=== PATIENT | female | born 1985 | race Caucasian/White ===

== ENCOUNTER 2017-07-10 09:38 | Inpatient (IN) | payer OTHER ==
[~2017-07-10] VITALS: Ht 165.1 cm; Wt 59.0 kg
[2017-07-10] MEDS ORDERED: LORAZEPAM 2 MG/1 ML VIAL IM PRN (11:30)
[2017-07-10] MEDS ORDERED: CLONIDINE HCL 0.1 MG TABLET PO PRN (11:30)
[2017-07-10] MEDS ORDERED: LOPERAMIDE HCL 2 MG CAPSULE PO PRN ×2 (11:30)
[2017-07-10] MEDS ORDERED: ACETAMINOPHEN 325 MG TABLET PO PRN (11:30)
[2017-07-10] MEDS ORDERED: NICOTINE 14 MG/24HR PATCH TD PRN (11:30)
[2017-07-10] MEDS ORDERED: NICOTINE POLACRILEX 4 MG GUM-PK OF TEN BC PRN (11:30)
[2017-07-10] MEDS ORDERED: BUPRENORPHINE HCL 2 MG TAB.SUBL SL PRN (11:30)
[2017-07-10] MEDS ORDERED: DIAZEPAM 10 MG TABLET PO PRN (11:30)
[2017-07-10] MEDS ORDERED: MAG HYDROX/AL HYDROX/SIMETH 30 ML LIQUID UDC PO PRN (11:30)
[2017-07-10] MEDS ORDERED: DIAZEPAM 5 MG TABLET PO PRN (11:30)
[2017-07-10 11:33] LABS: *URINE HCG, QUAL NEGATIVE (NEGATIVE)
[2017-07-10 11:46] LABS: *AMPHETAMINE, URINE NEGATIVE (NEGATIVE); *BARBITURATE, URINE NEGATIVE (NEGATIVE); *CANNABINOID, URINE NEGATIVE (NEGATIVE); *COCCAINE, URINE NEGATIVE (NEGATIVE); *OPIATE, URINE POSITIVE (NEGATIVE); *PHENCYCLIDINE SCREEN,URINE NEGATIVE (NEGATIVE)
--- NOTE | 2017-07-10 11:54 | NUR ---
Intake Assessment- Pt is being admitted to [facility] for supervised withdrawal from Dilaudid, Klonopin, and Trazodone. BP 108/76, HR 78, T-97.5, Reap 18, O2Sat 99%. Pt c/o chronic pain #9/10 r/t chronic complex regional pain syndrome and irritable bowel syndrome. Pt stable, no s/s withdrawal symptoms. Pt states she is always nauseated. c/o nausea now. Pt A&O X4. Pt reports she is allergic to a muscle relaxer but not able to remember the name. Pt able to sign consents. Is completing admission process with case coordinator.
[2017-07-10 12:00] VITALS: BP 108/76
[2017-07-10] MEDS ORDERED: IBUP-1953 PO (13:03)
[2017-07-10] MEDS ORDERED: ACET-2154 PO (13:04)
[2017-07-10] MEDS ORDERED: LIDO30AD10 TD (13:07)
[2017-07-10] MEDS ORDERED: ONDA8TAB6 PO (13:07)
[2017-07-10] MEDS ORDERED: [UNRECOGNIZED DRUG - REMARK] (13:08)
[2017-07-10] MEDS ORDERED: MECL-102 PO (13:09)
--- NOTE | 2017-07-10 13:30 | NUR ---
Admission Note- Pt is 32 y/o female who is admitted for medically supervised withdrawal from Dilaudid and Klonopin. Pt is under the influence of Dilaudid 8 mg and Klonopin 2 mg that she took at 0930 today. Pt has flat affect with a depressed mood. She is oriented X4, speech is slow and clear. Eye contact is good. The pt states that withdrawal from these substances has typically induced anxiety, agitation, panic attacks, generalized body pain, nausea and vomiting. Pt has history of withdrawal induced seizure in previous detox center in 2016. Pt states current substance use as follows: -Dilaudid 16 mg PO for 8 months. Last used today 8 mg at 0930 -Klonopin 4-5mg PO for 5 years. Last used 2 mg today at 0930 Pt states she is seeking treatment today because she wants to be off all these medications. This is her second detox. She was sober for 6 months, about 2 years ago in 2016. Her pain related to complex regional pain syndrome is her trigger. She is open to a 12-step program after detox. Vitals- 108/76, HR 78, 97.5, resp 18, 99% on room air. Pain #9/10 generalized, neck and right side of body. Resp even and unlabored, lung sounds clear, bowel sounds present, c/o constipation, no BM in 2 days. Hx of IBS. Skin intact. Pt does not drink milk, otherwise regular diet. ALLERGY MOBIC, causes rash. FULL CODE. Pt primary doctor Dr. Montiel in [place] treats her CRPS. Dr. Ama Montana in [facility] treats her IBS. Psychiatrist Dr. Dedrick Marshall. Pt has PMX of irritable bowel syndrome and complex regional pain syndrome. Pt daily medications also include Lidocaine 5% patch X3 for 12 hours. Zofran 8 mg Q8/hr, Baclofen 20 mg TID, Atarax 25-50 mg PRN and Miralax 1-2 capfuls PRN. Educated patient about plan of care including detox, group therapy, individual therapy and discharge planning. Encouraged pt to be open and honest and verbalized support for patient in her recovery.
[2017-07-10] MEDS: IBUPROFEN 600 MG TABLET PO PRN ×2 (14:12→20:39)
[2017-07-10] MEDS: ONDANSETRON ODT 4 MG TAB.RAPDIS SL PRN ×2 (14:12→20:39)
[2017-07-10] MEDS: BACLOFEN 20 MG TABLET PO PRN ×2 (14:12→20:39)
--- NOTE | 2017-07-10 14:14 | NUR ---
PRN VALIUM 5 MG for CIWA 8, pt c/o nauesa , sweats, tremors, anxiety. PRN ZOFRAN 4 MG PO for nausea. PRN MOTRIN 600 MG for generalized pain, neck pain and right sided pain. PRN BACLOFEN 20 MG for muscle spasms.
[2017-07-10] MEDS ORDERED: LIDOCAINE 5% TOP PRN (14:15)
--- NOTE | 2017-07-10 15:15 | NUR ---
Reassess PRN MEDICATIONS Valium- feel less anxious Zofran- still nauseated Motrin pain still #9/10 not effective Baclofen- muscle spasms improved.
[2017-07-10 15:59] LABS: ETHANOL < 3 MG/DL (0-0)
[2017-07-10 16:00] VITALS: BP 100/69
[2017-07-10 16:02] LABS: ALANINE AMINOTRANSFERASE 20 U/L (14-59); ALKALINE PHOSPHATASE 35 U/L (50-136); ASPARTATE AMINOTRANSFERASE 17 U/L (15-37); BASOPHILS % (AUTO) 0.6 % (0.0-2.0); BILIRUBIN,TOTAL 0.5 mg/dL (0.2-1.0); CARBON DIOXIDE 26 mmol/L (21-32); CHLORIDE 104 mmol/L (98-107); EOSINOPHILS # (AUTO) 0.2 K/uL (0.0-0.7); EOSINOPHILS % (AUTO) 2.9 % (0.0-7.0); GLUCOSE 103 mg/dL (74-106); HEMATOCRIT 37.9 % (31.2-41.9); HEMOGLOBIN 12.8 g/dL (10.9-14.3); LYMPHOCYTES # (AUTO) 2.6 K/uL (20.0-40.0); LYMPHOCYTES % (AUTO) 40.5 % (20.5-51.5); MAGNESIUM 2.1 mg/dL (1.8-2.4); MEAN CORPUSCULAR HEMOGLOBIN 29.3 uug (24.7-32.8); MEAN CORPUSCULAR HGB CONC 34 g/dL (32.3-35.6); MEAN CORPUSCULAR VOLUME 86.5 fL (75.5-95.3); MONOCYTES # (AUTO) 0.4 K/uL (2.0-10.0); MONOCYTES % (AUTO) 6.7 % (0.0-11.0); NEUTROPHILS # (AUTO) 3.2 K/uL (1.8-8.9); NEUTROPHILS % (AUTO) 49.3 % (38.5-71.5); PLATELET COUNT (AUTO) 142 K/uL (179-408); POTASSIUM 3.8 mmol/L (3.5-5.1); RED BLOOD CELL COUNT(AUTO) 4.38 MIL/uL (3.63-4.92); TOTAL PROTEIN, SERUM 7.1 g/dL (6.4-8.2); UREA NITROGEN, BLOOD 13 mg/dL (7-18); WHITE BLOOD COUNT (AUTO) 6.4 K/uL (3.8-11.8)
[2017-07-10] MEDS: ONDANSETRON 4 MG/2 ML VIAL IM PRN (16:32)
--- NOTE | 2017-07-10 16:37 | NUR ---
PRN ZOFRAN 4 MG IM for nausea and vomiting. 1 episode of emesis.
--- NOTE | 2017-07-10 17:15 | NUR ---
Reassess Zofran, emesis stopped. Pt states nausea improved. Pt ambulate to patio to smoke
--- NOTE | 2017-07-10 18:32 | NUR ---
End of shift- Pt is being admitted to [facility] for supervised withdrawal from Dilaudid, and Klonopin. Pt c/o chronic pain #9/10 r/t chronic complex regional pain syndrome and irritable bowel syndrome. Pt had one episode of emesis, and remains nauseated. PRN Baclofen, valium, Motrin, Zofran PO and IM given. Pt will start 5 day taper of Valium and Subutex tomorrow. Pt reports ALLERGY to MOBIC. FULL CODE. At 1600 last COWS 9 CIWA 11. Pt remained stable and vitals WNL. PO fluid intake 796 ml void X2, no BM. Safety measures in place. Will endorse to PM shift.
--- NOTE | 2017-07-10 19:15 | NUR ---
Start of Shift Note: Received patient from day shift nurse. Patient is a 58 y.o female admitted today 07/10/17 for medically supervised withdrawal from Opiate and Benzo dependence. Upon assessment, pt is observed to be disheveled & unkempt, noted with a flat affect, anxious/irritable mood, presented with chills, runny nose, dilated pupils, reports 9/10 body aches and moderately severe headache. Pt noted to be restless and with facial grimacing noted. Pt has sensitvity to light and loud noises and feelings of something crawling on skin. Patient is alert to name, place & situation. Pt has started on Valium taper and to be started on Subutex taper tomorrow. Pt tolerated Valium taper well. Last COWS 9 CI 11. Pt received PRN Valium 5mg, Motrin, Baclofen, Zofran SL & Zofran IM during the day. Encourage pt to increase fluid intake. Educated patient current plan of care for the night and medication regimen. Safety measures in place. Will continue to monitor patient.
[2017-07-10 20:00] VITALS: BP 111/72
[2017-07-10] MEDS: GABAPENTIN 300 MG CAPSULE PO SCH (20:39)
--- NOTE | 2017-07-10 20:39 | NUR ---
PRN Administration Patient presented with chills, 9/10 generalized body aches, moderate headache & nausea. PRN Clonidine, Motrin, Baclofen & Zofran SL administered as ordered. Will monitor for effectiveness of medication.
[2017-07-10] MEDS ORDERED: DIAZEPAM 10 MG TABLET PO SCH (21:00)
--- NOTE | 2017-07-10 21:39 | NUR ---
PRN Reassessment Patient asleep in bed at this time. Patient appears comfortable with no facial grimacing noted. No episode of vomiting was noted. Safety measures in place. Will continue to monitor patient.
[2017-07-11] VITALS: BP 95/52
[2017-07-11] MEDS: BACLOFEN 20 MG TABLET PO PRN (02:44)
--- NOTE | 2017-07-11 02:44 | NUR ---
PRN Valium & Baclofen Patient presented with anxious/irritable mood, mild headache, fine tremors and reports generalized body aches. CIWA 11 noted. PRN Valium 10mg and Baclofen administered as ordered. Will monitor for effectiveness of medication.
[2017-07-11] MEDS: DIAZEPAM 10 MG TABLET PO PRN (02:45)
--- NOTE | 2017-07-11 03:44 | NUR ---
PRN Reassessment Patient verbalized slight relief from generlized body aches and headache, decreased in anxiety. Patient appears more calm in bed. Will continue to monitor patient.
[2017-07-11] MEDS: IBUPROFEN 600 MG TABLET PO PRN (05:09)
--- NOTE | 2017-07-11 07:07 | NUR ---
Start of Shift Note: Patient is a 32 y.o female admitted for medically supervised withdrawal Opiate and Benzo withdrawal. Pt presented with anxious/irritable mood, presented with chills, runny nose, dilated pupils, restlessness, reports 9/10 body aches and moderately severe headache during my shift. Patient is alert to name, place & situation. Pt has started on Valium taper and to be started on Subutex taper today. Pt tolerated Valium taper well. Last COWS 10 CIWA 11. Pt received PRN Valium 10mg, Motrin 2x, Baclofen 2x, Zofran SL & Clonidine during the day. Encourage pt to increase fluid intake. Pt remained stable and vitals note WNL. Will continue to monitor s/s of withdrawal. Pt still asleep at this time. Pt slept for a total of 5 hours. Fluid intake: 500 ml. Voided 2x with no bowel movement during my shift. All needs attended. Safety measures in place. Will endorse to day shift nurse.
--- NOTE | 2017-07-11 07:37 | NUR ---
Start of shift note; Received report from night nurse. Patient is a 32 year female admitted on 07/10/17 for Opiate/ Benzodiazepine withdrawals. Patient is aOX4, complaining of anxiety, restless legs, generalized pain, muscle aches, diaphoresis, flat affect noted, patient appears anxious and isolated. Encouraged patient to participate in group therapies and activities and to verbalize feelings. All safety measures secured. Will continue to monitor patient.
[2017-07-11 08:00] VITALS: BP 107/68
[2017-07-11] MEDS ORDERED: TUBERCULIN,PURIF.PROT.DERIV. 5 TU/0.1 ML TEST ID ONE (09:00)
[2017-07-11] MEDS: DIAZEPAM 10 MG TABLET PO SCH ×4 (09:07→21:57)
[2017-07-11] MEDS: BUPRENORPHINE HCL 2 MG TAB.SUBL SL SCH ×4 (09:07→21:37)
[2017-07-11] MEDS: GABAPENTIN 300 MG CAPSULE PO SCH ×2 (09:07→21:57)
[2017-07-11] MEDS: ONDANSETRON ODT 4 MG TAB.RAPDIS SL PRN (09:22)
[2017-07-11] MEDS: DICYCLOMINE HCL 20 MG TABLET PO PRN (09:22)
--- NOTE | 2017-07-11 09:22 | NUR ---
PRN Medication; Patient is complaining of stomach cramps and Nausea. PRN Zofran 4mg SL given to prevent further nausea. PRN Bentyl 20mg PO given for stomach cramps. Will continue to monitor patient for effectiveness of medication.
[2017-07-11] MEDS: ONDANSETRON 4 MG/2 ML VIAL IM PRN ×2 (10:25→17:26)
--- NOTE | 2017-07-11 10:25 | NUR ---
Re-assessment and PRN medication; Patient had 1 episode of emesis and still complaining of nausea. Consulted pharmacist if its okay to give Zofran IM after 1 hour of Zofran SL, pharmacist Gareth okayed administration 1 hour post SL Zofran. PRN Zofran IM given on patient's left deltoid area. Will closely monitor patient. Safety measures secured. Instructed patient to notify staff immediately and press call light incase she is in need of help. All safety measures secured. Will closely monitor patient.
[2017-07-11 12:00] VITALS: BP 98/66
[2017-07-11] MEDS: KETOROLAC TROMETHAMINE 30 MG INJ IM PRN ×2 (12:49→21:43)
--- NOTE | 2017-07-11 12:49 | NUR ---
Toradol 30 mg IM given: Patient verbalizes generalized pain related to CRPS. She appears with facial grimacing, limiting her body movements and appears anxious. She verbalizes PL 8/10. Non-pharmacological interventions provided but ineffective. Medicated patient with Toradol 30mg IM as ordered. Will monitor for effectiveness.
--- NOTE | 2017-07-11 13:49 | NUR ---
Re-assessment; Re-assessed patient post Toradol IM administration, patient reported pain of 5/10 on pain scale. Patient's pain has improved. PRN medication noted to be effective.
[2017-07-11] MEDS: DICYCLOMINE HCL 20 MG TABLET PO SCH ×2 (14:11→21:56)
[2017-07-11 16:00] VITALS: BP 118/77
--- NOTE | 2017-07-11 17:26 | NUR ---
PRN medication; Patient is complaining of nausea and vomiting. PRN Zofran IM given to patient to prevent further N/V. Will continue to monitor patient for effectiveness of medication.
--- NOTE | 2017-07-11 17:57 | NUR ---
Re-assessment; Patient denies nausea and vomiting at this time. PRN Zofran noted to be effective.
--- NOTE | 2017-07-11 19:12 | NUR ---
End of shift; Patient is AOX4 appears to be agitated complaining of muscle aches, stomach cramps, generalized pain, anxiety. Patient remained compliant with treatment plan and medication regime. Patient participated in group activities and therapies. Medications were effective in reducing withdrawal symptoms. All safety measures secured. Endorsed to night nurse.
--- NOTE | 2017-07-11 19:30 | NUR ---
START OF SHIFT Pt is a 32 y/o female admitted on 07/10/17 for benzo and opiate withdrawal. Pt started a 5 day Valium and Subutex taper on 07/11/17, tolerating well. Per day shift nurse, last COWS 14 and CIWA 12 and PRN Zofran x 3, Toradol and Bentyl administered. Upon assessment pt presents with anxiety, nausea, vomiting, dry heaving, restlessness, difficulty falling asleep, sweats, tremors, stomach cramps, irritability, flat affect, disheveled appearance, unkempt room and generalized body pain 12/03. Medications due. Safety measures in place. Call light within reach. Will continue to monitor.
[2017-07-11 20:00] VITALS: BP 128/82
[2017-07-11] MEDS: TRAZODONE 100 MG TABLET PO SCH (21:00)
[2017-07-11] MEDS: diphenhydrAMINE 50 MG CAPSULE PO PRN (21:57)
--- NOTE | 2017-07-11 21:57 | NUR ---
PRN TORADOL INJ AND BENADRYL ADMINISTRATION Pt complains of pain 9/10 generalized body pain and requests sleep aid for insomnia. Safety measures in place. Call light within reach. Will continue to monitor.
--- NOTE | 2017-07-11 22:57 | NUR ---
PRN TORADOL INJ AND BENADRYL REASSESSMENT Pt laying in bed with eyes closed, medications noted effective. Safety measures in place. Call light within reach. Will continue to monitor. Addendum: 07/12/17 at 0134 by WINDY VAUGHN RN TORADOL REASSESSMENT DONE AT [id number]
--- NOTE | 2017-07-12 | NUR ---
COWS/CIWA DEFERRED AND VITALS REFUSED Pt laying in bed with eyes closed, COWS/CIWA deferred, to be assessed when pt is awake per orders. Vitals refused. Respirations even and unlabored. Safety measures in place. Call light within reach. Will continue to monitor.
[2017-07-12] MEDS: DICYCLOMINE HCL 20 MG TABLET PO PRN (01:27)
[2017-07-12] MEDS: ONDANSETRON 4 MG/2 ML VIAL IM PRN ×3 (01:27→17:50)
[2017-07-12] MEDS: DIAZEPAM 10 MG TABLET PO PRN (01:27)
[2017-07-12] MEDS: BACLOFEN 20 MG TABLET PO PRN (01:27)
--- NOTE | 2017-07-12 01:27 | NUR ---
PRN VALIUM 10 MG, BENTYL, ZOFRAN INJ AND BACLOFEN ADMINISTRATION CIWA 14. Pt presents with constant nausea, dry heaves, stomach cramps, tremors, sweats, anxiety, agitation and muscle spasms "throughout whole body." Safety measures in place. Call light within reach. Will continue to monitor.
--- NOTE | 2017-07-12 03:04 | NUR ---
PRN VALIUM, BENTYL, ZOFRAN INJ AND BACLOFEN REASSESSMENT CIWA 9. Pt has overall improvement in all S/S of withdrawal. All symptoms are tolerable per patient, but still remain. Safety measures in place. Call light within reach. Will continue to monitor. Addendum: 07/12/17 at 0306 by WINDY VAUGHN RN ZOFRAN INJ REASSESSMENT DONE AT 0157
--- NOTE | 2017-07-12 03:34 | NUR ---
KIMMIEN MARI INJ REASSESSMENT Pt reports nausea is now in "waves" and states it is currently tolerable but still present. Safety measures in place. Call light within reach. Will continue to monitor.
[2017-07-12 04:00] VITALS: BP_SYST 111; BP_SYST 124; BP_DIAS 67; BP_DIAS 85
--- NOTE | 2017-07-12 04:04 | NUR ---
PRN VALIUM AND BACLOFEN REASSESSMENT CIWA 9, pt has improvement in anxiety, restlessness, agitation and nausea. Pt reports muscle spasms are tolerable. Safety measures in place. Call light within reach. Will continue to monitor.
--- NOTE | 2017-07-12 06:00 | NUR ---
PRN VALIUM 20 MG, ZOFRAN ODT, COLACE ADMINISTRATION CIWA 16, orders to give Valium 20 mg PO. Pt presents with anxiety, agitation, tremors, sweats, photosensitivity, nausea without vomiting. Pt reports constipation and presents with abdominal bloating. PRN Colace administered. Safety measures in place. Call light within reach. Will continue to monitor.
[2017-07-12] MEDS: ONDANSETRON ODT 4 MG TAB.RAPDIS SL PRN (06:01)
[2017-07-12] MEDS: DOCUSATE SODIUM 250 MG CAPSULE PO PRN ×2 (06:09→13:27)
--- NOTE | 2017-07-12 06:30 | NUR ---
PRN ZOFRAN ODT REASSESSMENT Pt laying in bed with eyes closed, medication noted effective. Safety measures in place. Call light within reach. Will continue to monitor.
--- NOTE | 2017-07-12 07:00 | NUR ---
PRN VALIUM 20 MG AND COLACE REASSESSMENT CIWA 13, pt has improvement in nausea and photosensitivity, still presents with anxiety, restlessness and nausea. No BM at this time. Will continue to monitor.
[2017-07-12 07:23] LABS: BASOPHILS % (AUTO) 0.5 % (0.0-2.0); EOSINOPHILS # (AUTO) 0.2 K/uL (0.0-0.7); EOSINOPHILS % (AUTO) 2.9 % (0.0-7.0); HEMATOCRIT 36.1 % (31.2-41.9); HEMOGLOBIN 12.2 g/dL (10.9-14.3); LYMPHOCYTES # (AUTO) 3.4 K/uL (20.0-40.0); LYMPHOCYTES % (AUTO) 41.1 % (20.5-51.5); MEAN CORPUSCULAR HEMOGLOBIN 29.9 uug (24.7-32.8); MEAN CORPUSCULAR HGB CONC 34 g/dL (32.3-35.6); MEAN CORPUSCULAR VOLUME 88.7 fL (75.5-95.3); MONOCYTES # (AUTO) 0.7 K/uL (2.0-10.0); MONOCYTES % (AUTO) 8.9 % (0.0-11.0); NEUTROPHILS # (AUTO) 3.9 K/uL (1.8-8.9); NEUTROPHILS % (AUTO) 46.6 % (38.5-71.5); PLATELET COUNT (AUTO) 115 K/uL (179-408); RED BLOOD CELL COUNT(AUTO) 4.07 MIL/uL (3.63-4.92)
--- NOTE | 2017-07-12 07:29 | NUR ---
END OF SHIFT Pt is a 32 y/o female admitted on 07/10/17 for benzo and opiate withdrawal. Pt started a 5 day Valium and Subutex taper on 07/11/17, tolerating well. Pt presented with anxiety, agitation, nausea, vomiting, dry heaving, restlessness, difficulty falling and staying asleep, sweats, tremors, stomach cramps, irritability, flat affect, disheveled appearance, photosensitivity, muscle spasms, unkempt room and generalized body pain 12/03. Pt reports feeling dehydrated. Pt presents with abdominal bloating. Pt has swelling in right hand r/t her CRPS. Ice packs given for right hand. Scheduled medications and PRN Toradol inj, Benadryl, Valium 10 mg, Zofran inj, Bentyl, Baclofen, Valium 20 mg, Colace, Zofran odt administered, effective in S/S of withdrawal AEB COWS 115 CIWA 19 lowered to COWS 8 and CIWA 13. Pt slept 3 hours. Intake 1358 ml, void x 3, stool x 0. Safety measures in place. Call light within reach. Pts needs have been met. Endorsed to day shift nurse.
--- NOTE | 2017-07-12 07:30 | NUR ---
START OF SHIFT PT IS A 32 Y/O F ADMITTED ON THE FOR BENZO AND OPIATE W/D. PT IS ON A 5 DAY VALIUM AND SUBUTEX TAPER THAT STARTED ON 06/13/17 AND TOLERATING WELL. PT IS A/OX4, RESPIRATIONS AND EVEN, HAS A FLAT AFFECT, HAS A DISHEVELED APPEARANCE. PT PRESENTS NAUSEA, AGITATION, ANXIETY, RESTLESSNESS, GENERALIZED BODY ACHES, DIAPHORESIS, TREMORS, STOMACH CRAMPS, SENSITIVITY TO LIGHT, INSOMNIA, PT SLEPT ONLY 3 HRS PER BAIT PACKER NURSE. PT HAS SWELLING IN THE RIGHT HAND D/T CRPS. PT REPORTS FEELING DEHYRATED. ENCOURAGED PT TO INCREASE FLUIDS TO PROMOTE HYDRATION. LAST COWS 8 AND CIWA 13 PER BAIT PACKER NURSE. SIDE RAILS UPX2, BED IN LOWEST POSITION, CALL LIGHT WITHIN REACH. WILL CONTINUE TO MONITOR AND PROVIDE SUPPORT.
[2017-07-12 07:37] LABS: WHITE BLOOD COUNT (AUTO) 8.3 K/uL (3.8-11.8)
[2017-07-12 08:00] VITALS: BP 106/82
--- NOTE | 2017-07-12 08:30 | NUR ---
PRN ZOFRAN 4 MG IM INJ GIVEN FOR NAUSEA. WILL MONITOR FOR EFFECTIVENESS.
[2017-07-12] MEDS: DIAZEPAM 10 MG TABLET PO SCH ×3 (08:50→21:29)
[2017-07-12] MEDS: BUPRENORPHINE HCL 2 MG TAB.SUBL SL SCH ×3 (08:50→21:25)
[2017-07-12] MEDS: GABAPENTIN 300 MG CAPSULE PO SCH ×3 (08:50→21:26)
[2017-07-12] MEDS: DICYCLOMINE HCL 20 MG TABLET PO SCH ×3 (08:50→21:26)
--- NOTE | 2017-07-12 09:27 | NUR ---
REASSESSMENT PT REPORTED ZOFRAN INJ WAS EFFECTIVE FOR NAUSEA AND PT WAS ABLE TO EAT BREAKFAST. WILL CONTINUE TO MONITOR.
[2017-07-12 10:58] LABS: CREATININE 0.8 mg/dL (0.6-1.3); POTASSIUM 3.6 mmol/L (3.5-5.1)
[2017-07-12 12:00] VITALS: BP 114/75
[2017-07-12] MEDS: KETOROLAC TROMETHAMINE 30 MG INJ IM PRN ×2 (13:29→21:46)
[2017-07-12] MEDS: MIRALAX 17 GM POWD.PACK PO PRN (13:31)
--- NOTE | 2017-07-12 13:31 | NUR ---
PRN PT C/O CONSTIPATION AND R SIDE OF THE BODY PAIN, WRIST PAIN AND GENERALIZED PAIN 12/03. TORADOL IM INJ PRN, COLACE PO PRN, AND MIRALAX PO PRN GIVEN. WILL MONITOR FOR EFFECTIVENESS.
--- NOTE | 2017-07-12 14:31 | NUR ---
REASSESSMENT PT IS LAYING IN BED, WITH EYES CLOSED, APPEAR TO BE SLEEPING. SAFETY MEASURES IN PLACE. WILL CONTINUE TO MONITOR.
[2017-07-12 16:43] VITALS: BP 101/65
--- NOTE | 2017-07-12 17:50 | NUR ---
PRN PT WAS DRY HEAVING, AND C/O NAUSEA. ZOFRAN 4 MG IM ING PRN GIVEN. WILL MONITOR FOR EFFECTIVENESS.
--- NOTE | 2017-07-12 18:50 | NUR ---
REASSESSMENT PT IS PARTICIPATING IN GROUP. WILL CONTINUE TO MONITOR.
--- NOTE | 2017-07-12 19:22 | NUR ---
END OF SHIFT PT'S LAST COWS 10 AND CIWA 13 @1600. PT PRESENTS INSOMNIA, ANXIETY, AGITATION, RESTLESSNESS, DIAPHORESIS, NAUSEA, TREMORS. PT C/O HAVING PAIN IN MULTIPLE AREAS D/T CRPS PAIN 8/. PT HAS 1+EDEMA ON R WRIST WITH DISCOLORATION AND PAIN. PT C/O FEELING DEHYDRATED, CONSTIPATION, ABDOMINAL BLOATING, STOMACH SPASMS. ENCOURAGED PT TO INCREASE FLUIDS TOLERATED. PT HAS ATTENDED AND PARTICIPATED IN ALL GROUPS TODAY. ZOFRAN, COLACE, MIRALAX, TORADOL, PRNS WERE GIVEN DURING SHIFT. DVT PUMPS AT BEDSIDE PER PT'S REQUEST. PT REFUSED TO EAT MEALS ON TRAY; PT C/O DIETARY NOT GETTING THE RIGHT KINDS OF FOOD REQUESTED AND WANTED SOMETHING ELSE ONCE FOOD TRAY CAME UP. PT ATE 100%, 50%, 25% OF MEALS. PT HAS BEEN COMPLIANT WITH MED REGIMEN. SAFETY MEASURES IN PLACE. WILL GIVE ENDORSEMENT AND PERTINENT INFO TO CVT RN NURSE.
--- NOTE | 2017-07-12 19:30 | NUR ---
Start of Shift Pt is a 32 y/o female admitted 07/10/17 for Withdrawal from Dilaudid and Klonopin. Room is messy with clothes thrown on floor, dinner tray 95% still present, pt is found in brown at nursing station requesting smoking pass. Pt wearing more clothes than needed, disheveled and unkempt, stocking cap covering head. Presents with flat, blunted affect and poor eye contact. Appears sad, guarded and irritable with complaints of pain, N&V with dry heaves into toilet. Pt admits nausea worse when and after smoking and asked to be mindful and monitor connection. Hydration and nourishment encouraged, evening meds reviewed with Milk of Magnesia requested. Will monitor and promptly attend to all needs
[2017-07-12 20:00] VITALS: BP 117/73
[2017-07-12] MEDS: TRAZODONE 100 MG TABLET PO SCH (21:00)
[2017-07-12] MEDS: CLONIDINE HCL 0.1 MG TABLET PO SCH (21:27)
[2017-07-12] MEDS: MAGNESIUM HYDROXIDE 30 ML LIQUID UDC PO PRN (21:32)
--- NOTE | 2017-07-12 21:46 | NUR ---
PRLy Davilas Toradol 30mg IM given for generalized right side pain 02/02, and Milk of Mg 30mG PO given for constipation. Will continue to monitor and reassess pain in 30 minutes. Addendum: 07/13/17 at 0059 by ANGEL CASTRO RN Pt also deferring Trazadone 250mg PO until later
--- NOTE | 2017-07-12 22:16 | NUR ---
PAIN PRN Reassessment Toradol 30mg IM effective. Pt reports deminished pain of 6/10, is more pleasant acting, ambulating in kitchen fixing cereal with fruit
--- NOTE | 2017-07-13 | NUR ---
PRN Nausea Med Zofran 4mg IM to R deltoid given for repeated c/o Nausea & Vomiting. No emesis present, only "dry heaves". Pt resting in bed. will continue to monitor and reassess in 30 minutes Addendum: 07/13/17 at 0058 by ANGEL CASTRO RN Pt previously delaying Trazadone 250mg PO to later, now refusing trazdone saying "I'll try sleeping on my own, the Trazadone will make me feel sleepy all day tomorrow if I take it now"
[2017-07-13] MEDS: ONDANSETRON 4 MG/2 ML VIAL IM PRN ×2 (00:04→09:31)
--- NOTE | 2017-07-13 00:30 | NUR ---
Pt found sleeping in bed, RR 14, no S/S's N&V evident, or odor, Zofran 4mg IM effective. Will continue to monitor and promptly attend to all needs
[2017-07-13 04:00] VITALS: BP 91/59
--- NOTE | 2017-07-13 04:00 | NUR ---
Pt refuses Motrin 600mg PO for pain 12/03. Prefers to wait for Toradol 30mg PO at 0600. Pt up, ambulating in brown, tv in room. Will continue to monitor and promptly attend to all needs
[2017-07-13] MEDS: KETOROLAC TROMETHAMINE 30 MG INJ IM PRN ×2 (05:27→18:19)
--- NOTE | 2017-07-13 05:27 | NUR ---
PRN Med Toradol 30mg IM given for pain level 10/10, r sided generalized pain, Will monitor and promply attend to all needs/reassess in 30 minutes
[2017-07-13] MEDS: PANTOPRAZOLE SODIUM 40 MG TABLET.DR PO SCH (06:10)
--- NOTE | 2017-07-13 07:13 | NUR ---
Start of Shift Pt is a 32 y/o female admitted 07/10/17 for Withdrawal from Dilaudid and Klonopin. Pt involved with POC and medication regimen, requesting: Zofran 4mg IM at 0000, for N&V, no emesis Toradol 30mg IM at 2146 and 0527, for generalized right sided pain, rated 10/10 Milk of Magnesia 30 ml PO at 2132, for constipation Trazadone 250mg PO refused, as it would make her too drowsy the next day Difficulty staying asleep with Intermittent sleep periods ranging from 1 to 2 hours at a time, 3 hours declared for night, Input [id number] ml, Voids 2, VSs taken at 0400 while awake, COWS 9 CIWA 14, refused Motrin preferring to wait until 0600 for Torado 30mg IM. Numerous trips to nursing station during shift for requests. Behavior best described as manipulative, needy, attention-seeking, soft speech
--- NOTE | 2017-07-13 07:57 | NUR ---
START OF SHIFT PT IS A 32 Y/O F ADMITTED ON THE FOR BENZO AND OPIATE W/D. PT IS ON A 5 DAY VALIUM AND SUBUTEX TAPER THAT STARTED ON 06/13/17 AND TOLERATING WELL. PT IS A/OX4, RESPIRATIONS AND EVEN, HAS A FLAT AFFECT, HAS A DISHEVELED APPEARANCE. PT PRESENTS INSOMNIA, NAUSEA, AGITATION, ANXIETY, RESTLESSNESS, GENERALIZED BODY ACHES, DIAPHORESIS, TREMORS, STOMACH CRAMPS, SENSITIVITY TO LIGHT. PT HAS SLIGHT SWELLING IN THE RIGHT HAND RELATED TO CRPS PER PT. PT REPORTS FEELING DEHYRATED. ENCOURAGED PT TO INCREASE FLUIDS TO PROMOTE HYDRATION. LAST COWS 9 AND CIWA 14 PER LABOR STANDARDS DIRECTOR NURSE. PT SLEPT 3 HRS. SIDE RAILS UPX2, BED IN LOWEST POSITION, CALL LIGHT WITHIN REACH. WILL CONTINUE TO MONITOR AND PROVIDE SUPPORT.
[2017-07-13 08:00] VITALS: BP 101/62
[2017-07-13] MEDS ORDERED: DIAZEPAM 5 MG TABLET PO SCH (09:00)
[2017-07-13] MEDS ORDERED: BUPRENORPHINE HCL 2 MG TAB.SUBL SL SCH ×2 (09:00→15:00)
[2017-07-13] MEDS: DICYCLOMINE HCL 20 MG TABLET PO SCH ×3 (09:16→21:26)
[2017-07-13] MEDS: CLONIDINE HCL 0.1 MG TABLET PO SCH ×2 (09:17→21:26)
[2017-07-13] MEDS: GABAPENTIN 300 MG CAPSULE PO SCH ×3 (09:17→21:26)
--- NOTE | 2017-07-13 09:31 | NUR ---
PRN ZOFRAN 4MG SL PRN GIVEN FOR NAUSEA. WILL MONITOR FOR EFFECTIVENESS.
--- NOTE | 2017-07-13 10:01 | NUR ---
REASSESSMENT PT REPORTED ZOFRAN WAS EFFECTIVE FOR NAUSEA. WILL CONTINUE TO MONITOR.
--- NOTE | 2017-07-13 10:01 | NUR ---
BEHAVIORAL NOTE PT WAS BEING ARGUMENTATIVE AND RAISING HER VOICE; DEMANDED TO HAVE MAGNESIUM CITRATE FOR CONSTIPATION. PT VERBALIZED SHE HAS NOT BEEN ABLE TO HAVE A BM FOR DAYS AND OTHER PRNS ADMINISTERED WERE NOT EFFECTIVE. PT VERBALIZED SHE HAS TAKING SENNA, COLACE, MIRALAX, AND OTHER LAXATIVES DAILY AND STATED, "I KNOW THESE ARE NOT GOING TO HELP ME. I JUST KNOW IT." PT ALSO VERBALIZED SHE DID NOT WANT TO GO HOME UNTIL HER CLOTHES WERE CLEANED D/T THE SMELL OF SMOKE. PT STATED, "I CANNOT LET MY SMELL THE SMOKE FROM MY CLOTHES. I AM ABOUT TO HAVE A PANIC ATTACK ABOUT LEAVING IN A FEW DAYS." REASSURED PT THAT CLOTHES CAN BE BROUGHT BACK FROM [employer] BEFORE DISCHARGE.
[2017-07-13 12:00] VITALS: BP 92/65
[2017-07-13 13:11] LABS: HEPATITIS B SURFACE AG Negative (Negative)
[2017-07-13] MEDS: DIAZEPAM 5 MG TABLET PO SCH ×2 (13:33→16:43)
[2017-07-13] MEDS: BUPRENORPHINE HCL 2 MG TAB.SUBL SL SCH ×3 (13:35→21:27)
[2017-07-13] MEDS: DOCUSATE SODIUM 250 MG CAPSULE PO PRN (14:47)
[2017-07-13] MEDS: MIRALAX 17 GM POWD.PACK PO PRN (14:48)
--- NOTE | 2017-07-13 14:48 | NUR ---
PRN PT C/O CONSTIPATION AND ABDOMINAL BLOATING; COLACE AND MIRALAX PO PRN GIVEN. WILL MONITOR FOR EFFECTIVENESS.
--- NOTE | 2017-07-13 15:47 | NUR ---
REASSESSMENT PT VERBALIZED MEDICATION WAS NOT YET EFFECTIVE. ENCOURAGED PT TO BE PATIENT AND WAIT FOR EFFECTIVENESS WITH TIME. WILL CONTINUE TO MONITOR.
[2017-07-13 16:00] VITALS: BP 97/64
[2017-07-13] MEDS: ONDANSETRON ODT 4 MG TAB.RAPDIS SL PRN (18:20)
[2017-07-13] MEDS: MAGNESIUM CITRATE 296 ML BOTTLE PO PRN (18:23)
--- NOTE | 2017-07-13 18:25 | NUR ---
PRN Zofran, Mag Citrate, and Toradol Pt c/o upper and lower extremity pain 9/10, nausea without vomiting, and no BM. Miralax and Docusate reassessed and not effective. Okay per Dr. Olivares to administer PRN Mag Citrate. PRN Toradol and Zofran administered.
--- NOTE | 2017-07-13 19:20 | NUR ---
Start of Shift Patient received. Patient is noted in activities room participating in a group meeting. Per endorsement, patient is a 32 year old female admitted for ETOH and Opiate Withdrawal. Patient continues on an modified Ativan and Subutex taper. Patient has been noted with episodes of behavior in manipulating medications. Patient was given PRN Zofran IM with medication noted to be effective. Patient was also given PRN Colace and PRN Miralax with medications not effective. She was then given PRN Zofran ODT, PRN Mag cit, and PRN Toradol. Will reassess medications. Last noted CIWA 8 and COWS 8. All needs attended to promptly. Will continue plan of care as ordered.
--- NOTE | 2017-07-13 19:56 | NUR ---
END OF SHIFT PT'S COWS/CIWA WERE 02/06 AND DECREASED TO 8. PT WAS EXCUSED FROM MORNING AND AFTERNOON GROUP D/T LACK OF SLEEP AND TOOK NAPS DURING THAT TIME. PT HAS BEEN COMPLAINING ABOUT EVERY MEAL GIVEN TO HER AND REFUSED TO EAT MOST OF THEM D/T "NOT WHAT SHE WANTED." PRNS ZOFRAN, TORADOL, COLACE, MIRALAX, MAG CITRATE GIVEN DURING SHIFT. SAFETY MEASURES IN PLACE. WILL GIVE ENDORSEMENT TO 3RD PRESSMAN NURSE.
[2017-07-13 20:45] VITALS: BP 113/78
[2017-07-13] MEDS ORDERED: DIAZEPAM 10 MG TABLET PO SCH (21:00)
[2017-07-13] MEDS ORDERED: FLEET ENEMA 133 ML BOTTLE RC PRN (21:00)
[2017-07-13] MEDS: TRAZODONE 100 MG TABLET PO SCH (21:27)
--- NOTE | 2017-07-13 21:30 | NUR ---
PRN Medication Administration/PRN Medication Reassessment Patient is noted verbalizing increased feelings of constipation. Patient is noted with abdominal distention. Bowel sounds noted to be hyperactive in all four quadrants. Patient verbalizes "I've been really nausea because I need to go to move my bowels but Im having trouble." PRN Mag Cit not effective. Patient is able to verbalize PRN Zofran was effective in minimizing nausea. PRN Toradol effective in minimizing pain. No Pain verbalized. PRN Fleet enema administered as per order. Will continue to monitor.
--- NOTE | 2017-07-13 22:00 | NUR ---
PRN Medication Reassessment Patient is able to verbalize PRN Fleet Enema noted to be effective. Will continue to monitor.
[2017-07-14 00:18] VITALS: BP 106/65
[2017-07-14 04:08] VITALS: BP 103/58
[2017-07-14] MEDS: PANTOPRAZOLE SODIUM 40 MG TABLET.DR PO SCH (06:42)
--- NOTE | 2017-07-14 07:12 | NUR ---
End of shift Patient is in bed sleeping. Breathing even and non labored. Patient continues on PRN Medications for increased signs and symptoms of withdrawal. Patient was given PRN Benadryl for inability of falling and staying asleep. Patient slept for approx 8 hours. PRN Mylanta administered for increased heart burn with medication noted to be effective. Patient was also noted with episode of auditory and visual hallucinations. CIWA noted to be 23. PRN Ativan administered with medication noted to be effective. Patient was reassessed and patient was able to verbalize "the Ativan helped my anxiety. I haven't fully fallen back to sleep yet to have another episode." CIWA noted to be 9. All needs attended to promptly. Will endorse to continue plan of care as ordered.
--- NOTE | 2017-07-14 07:20 | NUR ---
START OF SHIFT : PATIENT IS A 32 YR OLD FEMALE ADMITTED TO [facility] ON 07/10/17 FOR WITHDRAWAL FROM OPIATES AND BENZODIAZEPINES. PER REPORT PT HAS BEEN C/O INABILITY TO HAVE A BM, FLEETS ENEMA GIVEN ON PM SHIFT WITH POSITIVE RESULTS, NO OTHER PRN MEDICATION REQUIRED OR REQUESTED. LAST COWS 5 AND CIWA 6 ON PM SHIFT. PATIENT IS ASLEEP IN BED AT THIS TIME, BREATHING EVEN AND UNLABORED, SIDE RAILS UP X 2, WILL CONTINUE TO FOLLOW MD PLAN OF CARE.
[2017-07-14 08:00] VITALS: BP 77/41
--- NOTE | 2017-07-14 08:20 | NUR ---
PRN ZOFRAN/MIRALAX 4MG SL ZOFRAN GIVEN FOR C/O NAUSEA 17G PO MIRALAX GIVEN PER REPORT CONSTIPATION WILL REASSESS
[2017-07-14] MEDS: ONDANSETRON ODT 4 MG TAB.RAPDIS SL PRN (08:21)
[2017-07-14] MEDS: DICYCLOMINE HCL 20 MG TABLET PO SCH ×3 (08:23→21:48)
[2017-07-14] MEDS: GABAPENTIN 300 MG CAPSULE PO SCH ×3 (08:23→21:48)
[2017-07-14] MEDS: BUPRENORPHINE HCL 2 MG TAB.SUBL SL SCH ×3 (08:24→21:49)
[2017-07-14] MEDS: MIRALAX 17 GM POWD.PACK PO PRN (08:30)
--- NOTE | 2017-07-14 08:30 | NUR ---
CLONIDINE 0.1MG HELD CLONIDINE 0.1MG PO HELD, PT BP 77/41 HR 58 @ 0800 BP RECHECK @ 0830 86/52 HR 60, MEDICATION HELD AND NOT GIVEN
[2017-07-14] MEDS: CLONIDINE HCL 0.1 MG TABLET PO SCH ×2 (08:31→21:49)
[2017-07-14] MEDS ORDERED: DIAZEPAM 5 MG TABLET PO SCH ×2 (09:00→15:00)
[2017-07-14] MEDS: KETOROLAC TROMETHAMINE 30 MG INJ IM PRN ×2 (09:18→17:49)
--- NOTE | 2017-07-14 09:18 | NUR ---
PRN TORADOL 30MG TORADOL IM GIVEN IN LEFT GLUTEUS PER PT REQUEST FOR PAIN IN RIGHT WRIST/BACK 09/02
--- NOTE | 2017-07-14 09:20 | NUR ---
PRN REASSESS NAUSEA RESOLVED WITH SL ZOFRAN 4MG PER PATIENT, NO BM YET
--- NOTE | 2017-07-14 10:00 | NUR ---
Therapist prompted client about group times. Client plans to attend all groups today.
--- NOTE | 2017-07-14 10:20 | NUR ---
TORADOL REASSESS PATIENT STATES PAIN LEVEL 3/10 , TORADOL 30 MG IM EFFECTIVE, CONTINUE TO MONITOR
[2017-07-14] MEDS: HYDROXYZINE PAMOATE 25 MG CAPSULE PO PRN ×2 (12:07→17:48)
--- NOTE | 2017-07-14 12:07 | NUR ---
PRN VISTARIL 25MG PO VISTARIL GIVEN FOR C/O ANXIETY
[2017-07-14 12:20] VITALS: BP 80/49
[2017-07-14] MEDS: BACLOFEN 20 MG TABLET PO PRN (12:46)
--- NOTE | 2017-07-14 12:46 | NUR ---
PRN BACLOFEN BACLOFEN 20MG PO GIVEN FOR C/O PAIN IN HANDS/BACK 09/02
--- NOTE | 2017-07-14 13:07 | NUR ---
PRN REASSESS VISTARIL EFFECTIVE, PT STATES SHE FEELS MORE RELAXED
--- NOTE | 2017-07-14 13:45 | NUR ---
PRN REASSESS PT STATES HER PAIN LEVEL IS 3/10, BACLOFEN EFFECTIVE
[2017-07-14 16:00] VITALS: BP 84/55
[2017-07-14] MEDS: BOOST PLUS 237 ML LIQUID (RICH CHOCOLATE) PO SCH (17:50)
--- NOTE | 2017-07-14 17:50 | NUR ---
PRN PRN VISTARIL 25MG PO AND TORADOL 30MG IM GIVEN IN RIGHT GLUTEUS FOR PAIN 11/02 WILL CONTINUE TO MONITOR
--- NOTE | 2017-07-14 18:47 | NUR ---
PRN REASSESS MEDICATIONS EFFECTIVE, PT STATES PAIN LEVEL IS NOW 4/10 AND ANXIETY HAS DECREASED, CONTINUE TO MONITOR
--- NOTE | 2017-07-14 19:04 | NUR ---
END OF SHIFT : PATIENT IS A 32 YEAR OLD FEMALE ADMITTED TO [facility] ON 07/10/17 FOR WITHDRAWAL FROM OPIATES AND BENZOS. PATIENT IS ON A MODIFIED VALIUM / SUBUTEX TAPER AND THIS IS DAY 4. PATIENT HAD NAUSEA AT START OF SHIFT BUT RESOLVED AFTER 4MG SL ZOFRAN @ 0830. PATIENT REQUIRED TORADOL IM 30MG X2 FOR GENERALIZED PAIN, VISTARIL X 2, MIRALAX AND BACLOFEN. PATIENT HAD A FLUID INTAKE OF 1350ML, 4 VOIDS AND 1 BM. LAST COWS 5 AND CIWA 9 @ 1600. CONTINUE TO FOLLOW MD PLAN OF CARE.
--- NOTE | 2017-07-14 19:11 | NUR ---
Start of shift note Received report from day shift nurse. Pt is a 32 yo female, A+Ox4, [facility] Benzo/Opiate withdrawal. Pt noted to be anxious, agitated, restless, and having very messy room with clothes on floor and food on side table and dresser. Pt is on modified 5day Valium and 5 day Subutex tapers, tolerated well. Pt has HX of Complex regional pain syndrome, IBS, Anxiety, and Depression which will be monitored during shift. Respirations even and unlabored. Will continue to monitor.
[2017-07-14 20:32] VITALS: BP 102/72
[2017-07-14] MEDS ORDERED: DIAZEPAM 10 MG TABLET PO SCH (21:00)
[2017-07-14] MEDS ORDERED: TRAZODONE 100 MG TABLET PO SCH ×2 (21:00)
[2017-07-14] MEDS: TRAZODONE 100 MG TABLET PO SCH (21:48)
[2017-07-15 00:18] VITALS: BP 110/75
[2017-07-15 04:32] VITALS: BP 118/79
--- NOTE | 2017-07-15 07:00 | NUR ---
End of shift note Pt was continuously noted with agitation, anxiety, and restlessness. Pt remained in room for majority of shift except to go smoke on smoking patio, to get food from kitchen, and to interact with other patients in recreational room. Pt was not given and PRN medications during shift. Pt slept for a total of 7 HRS. Last COWS: 7 and Last CIWA: 8 @0400. Respirations even and unlabored. Will endorse to day shift nurse.
[2017-07-15] MEDS: PANTOPRAZOLE SODIUM 40 MG TABLET.DR PO SCH (07:19)
[2017-07-15] MEDS: HYDROXYZINE PAMOATE 25 MG CAPSULE PO PRN ×2 (07:19→18:44)
--- NOTE | 2017-07-15 07:19 | NUR ---
Start of Shift Notes/MD Communication: Received patient in her room. Awake, alert and verbally responsive. Complains of anxiety. Denies AV hallucinations. Patient is noted with swollen lips and lesions inside lower lip. Patient states "I think it's the Subutex." Area is not bleeding. Denies difficulty breathing. Able to swallow food and liquid. VS stable. Notified Dr. Olivares by charge nurse. MD is aware and unable to enter in orders at this time. Orders obtained for Benadryl 50 mg PO as ordered. Educated patient on her current plan of care for the day and her medication regimen. Encouraged oral fluid intake and encouraged group participation to learn new skills to prevent relapse. Will continue to monitor closely.
--- NOTE | 2017-07-15 07:20 | NUR ---
PRN Vistaril Pt c/o anxiety and requested for PRN Vistaril. Medication given and tolerated well. Will reassess within 1 HR. Will continue to monitor.
[2017-07-15] MEDS ORDERED: diphenhydrAMINE 25 MG CAP PO ONE (07:30)
--- NOTE | 2017-07-15 07:38 | NUR ---
Benadryl 50 mg PO given: Medicated patient with Benadryl 50 mg PO as ordered x 1 for lip swelling. Will monitor for effectiveness.
[2017-07-15 08:00] VITALS: BP 104/60
--- NOTE | 2017-07-15 08:20 | NUR ---
Re-assessment: Vistaril per patient, PRN Vistaril was mildly effective in reducing anxiety.
--- NOTE | 2017-07-15 08:38 | NUR ---
Re-assessment: Benadryl Patient noted with decrease on her lip swelling. Patient stated "It worked." PRN Benadryl was effective.
[2017-07-15] MEDS: DIAZEPAM 5 MG TABLET PO SCH ×2 (08:59→21:42)
[2017-07-15] MEDS: DICYCLOMINE HCL 20 MG TABLET PO SCH ×3 (08:59→21:41)
[2017-07-15] MEDS: GABAPENTIN 300 MG CAPSULE PO SCH ×3 (08:59→21:41)
[2017-07-15] MEDS: CLONIDINE HCL 0.1 MG TABLET PO SCH ×2 (08:59→21:42)
[2017-07-15] MEDS: BUPRENORPHINE HCL 2 MG TAB.SUBL SL SCH ×2 (09:00→21:00)
[2017-07-15] MEDS: BOOST PLUS 237 ML LIQUID (RICH CHOCOLATE) PO SCH ×2 (09:03→16:33)
[2017-07-15] MEDS: predniSONE 20 MG TABLET PO SCH (10:52)
[2017-07-15] MEDS: LORATADINE 10 MG TABLET PO SCH (10:52)
[2017-07-15] MEDS: KETOROLAC TROMETHAMINE 30 MG INJ IM PRN (10:53)
[2017-07-15] MEDS: FAMOTIDINE 20 MG TABLET PO SCH (10:55)
--- NOTE | 2017-07-15 10:55 | NUR ---
Toradol 30 mg/Claritin/Pepcid/Prednisone given/MD Communication: Patient complained of 8/10 generalized pain. Medicated patient with Toradol 30 mg IM as ordered. Orders received for Claritin, Pepcid and Prednisone and was administered due to possible allergic reaction to Subutex. Patient verbalizes "I can't breathe, I'm wheezing." Lung sounds auscultated. Noted with bilateral clear lung sounds upon auscultation. BP 93/60, Pulse 88, RR 18, O2 sat at RA 99%. Patient was discouraged from smoking. Notified MD Olivares. Patient education provided regarding smoking cessation. Will monitor closely.
--- NOTE | 2017-07-15 11:25 | NUR ---
Re-assessment: Toradol Patient is noted to walk around the unit without any signs of pain but she verbalizes that her PL has gone down to a 3/10 from 12/03. Patient states that Toradol 30 mg IM was effective in reducing pain. Will continue to monitor. No wheezing noted at this time.
[2017-07-15 12:00] VITALS: BP 94/50
[2017-07-15] MEDS ORDERED: TRAZ-147 PO (14:09)
[2017-07-15] MEDS ORDERED: GABA-534 PO (14:09)
[2017-07-15] MEDS ORDERED: IBUP-1957 PO (14:09)
[2017-07-15] MEDS ORDERED: HYDR-3895 PO (14:09)
[2017-07-15] MEDS ORDERED: LORA-114 PO (14:09)
[2017-07-15] MEDS ORDERED: FAMO20TA8 PO (14:09)
[2017-07-15] MEDS ORDERED: DIPH50CA37 PO (14:09)
[2017-07-15] MEDS ORDERED: BACL20TA PO (14:09)
[2017-07-15] MEDS ORDERED: DICY20TA28 PO (14:09)
[2017-07-15] MEDS ORDERED: CLON0.1T14 PO (14:09)
[2017-07-15 16:00] VITALS: BP 126/90
[2017-07-15] MEDS: MAGNESIUM CITRATE 296 ML BOTTLE PO PRN (18:42)
--- NOTE | 2017-07-15 18:44 | NUR ---
Vistaril 25mg PO given: Patient complained of anxiety. VS stable. Non-pharmacological interventions provided but ineffective. Medicated patient with Vistasril 25 mg PO as ordered. Will monitor for effectiveness.
--- NOTE | 2017-07-15 19:03 | NUR ---
End of Shift Notes: Patient continues to be on 5-day Subutex and 5-day Valium taper as ordered. No adverse reaction noted. VS monitored closely. No significant abnormalities noted. Withdrawal symptoms were closely monitored. Initial COWS 11/CIWA 12, due to anxiety/agitation, gross tremors, sweating, pupil dilation, chills, hot flashes, myalgia and fatigue. Last COWS 8/CIWA 10. . Patient was noted with lip swelling during the day due to a possible allergic reaction from Subutex. At the beginning of the shift, patient was immediately medicated with Vistaril and Benadryl with help. Patient was then started on Prednisone, Claritin and Pepcid as ordered. PRN Toradol 30 mg IM given at 1055 for 8/10 generalized myalgia, with help after 30 minutes. Vistaril 25 mg PO given at 1844 for anxiety with results pending. Appetite fair. Patient verbalizes that Valium has been effective in reducing her withdrawal symptoms. Smoking was discouraged. On fall and seizure precautions. All needs met and attended. Will continue to monitor closely.
--- NOTE | 2017-07-15 19:11 | NUR ---
Start of shift note Received report from day shift nurse. Pt is a 32 yo female, A+Ox4, presenting to [facility] for Benzo/Opiate withdrawal. Pt noted to be irritable, anxious, agitated, and restless. Pt has HX of IBS, Anxiety, depression, and Complex regional pain syndrome which will be monitored during shift. Pt is on modified 5 day Valium and 5 day Subutex tapers, tolerated well. Respirations even and unlabored. Will continue to monitor.
--- NOTE | 2017-07-15 19:40 | NUR ---
PRN Vistaril Reassessment Medication effective. Pt expresses reduction in anxiety. No s/s of ASE noted at this time. Respirations even and unlabored. Will continue to monitor.
[2017-07-15 20:11] VITALS: BP 119/84
[2017-07-15] MEDS: TRAZODONE 100 MG TABLET PO SCH (21:42)
[2017-07-15] MEDS: MAGNESIUM HYDROXIDE 30 ML LIQUID UDC PO PRN (21:48)
[2017-07-15] MEDS: diphenhydrAMINE 50 MG CAPSULE PO PRN (21:49)
--- NOTE | 2017-07-15 21:49 | NUR ---
PRN MOM and Benadryl Pt c/o constipation and inability to sleep and requested for PRN MOM and Benadryl. Medications given and tolerated well. Will reassess within 1 HR. Will continue to monitor.
--- NOTE | 2017-07-15 22:45 | NUR ---
PRN MOM and Benadryl Reassessment PRN Benadryl effective. Pt is resting well in bed. No s/s of ASE noted at this time. Awaiting effectiveness of MOM. Respirations even and unlabored. Will continue to monitor.
[2017-07-16 00:24] VITALS: BP 127/89
[2017-07-16] MEDS: KETOROLAC TROMETHAMINE 30 MG INJ IM PRN (02:27)
--- NOTE | 2017-07-16 02:27 | NUR ---
PRN Toradol Pt c/o abdominal pain 12/03 and requested for PRN Toradol. Medication given and tolerated well. Will reassess within 1 HR. Will continue to monitor.
--- NOTE | 2017-07-16 03:20 | NUR ---
PRN Toradol Reassessment Medication effective. Pt expresses reduction in abdominal pain to 4/10. No s/s of ASE noted at this time. Respirations even and unlabored. Will continue to monitor.
[2017-07-16 04:33] VITALS: BP 124/86
[2017-07-16] MEDS: PANTOPRAZOLE SODIUM 40 MG TABLET.DR PO SCH (06:58)
--- NOTE | 2017-07-16 07:00 | NUR ---
End of shift note Pt was continuously noted with anxiety, restlessness, agitation, and messy room. Pt remained in room for majority of shift except to go smoke on smoking patio and to get food from kitchen. Pt was given PRN MOM and Benadryl @8139 and PRN Toradol @0227. Pt slept for a total of 5 HRS. Last COWS: 10 and Last CIWA: 10 @0400. Respirations even and unlabored. Will endorse to day shift nurse.
--- NOTE | 2017-07-16 07:15 | NUR ---
Start of Shift Notes/MD Communication: Received patient in her room. Awake, alert and verbally responsive. Complains of anxiety. Denies AV hallucinations. Patient is a 32 year old female admitted for opiate and BZO withdrawal. Placed on a 5-day Valium and 5-day Subutex taper as ordered. No adverse reactions noted. Educated patient on her current plan of care for the day and her medication regimen. Per night report, patient was given PRN MOM, Benadryl and Toradol during the night. Last COWS 10/CIWA 10. Slept for 5 hours. Encouraged oral fluid intake and encouraged group participation to learn new skills to prevent relapse. Will continue to monitor closely.
[2017-07-16 08:00] VITALS: BP 109/71
[2017-07-16] MEDS: FAMOTIDINE 20 MG TABLET PO SCH (08:58)
[2017-07-16] MEDS: LORATADINE 10 MG TABLET PO SCH (08:58)
[2017-07-16] MEDS: GABAPENTIN 300 MG CAPSULE PO SCH ×3 (08:58→21:17)
[2017-07-16] MEDS: BOOST PLUS 237 ML LIQUID (RICH CHOCOLATE) PO SCH ×2 (08:58→17:12)
[2017-07-16] MEDS: CLONIDINE HCL 0.1 MG TABLET PO SCH ×2 (08:59→21:17)
[2017-07-16] MEDS: DICYCLOMINE HCL 20 MG TABLET PO SCH ×3 (08:59→21:17)
[2017-07-16] MEDS: predniSONE 20 MG TABLET PO SCH (08:59)
[2017-07-16] MEDS ORDERED: DIAZEPAM 5 MG TABLET PO SCH (09:00)
[2017-07-16] MEDS ORDERED: BUPRENORPHINE HCL 2 MG TAB.SUBL SL SCH (09:00)
--- NOTE | 2017-07-16 09:39 | NUR ---
Subutex 2 mg SL at 0900 not administered: Patient had a possible reaction to Subutex yesterday. Subutex 2 mg held at this time per MD. aware.
[2017-07-16 12:00] VITALS: BP 106/67
[2017-07-16] MEDS ORDERED: BENZOCAINE/MENTH/CETYLPYRD LOZENGE MM PRN (13:45)
[2017-07-16] MEDS: IBUPROFEN 800 MG TABLET PO PRN (14:05)
--- NOTE | 2017-07-16 14:05 | NUR ---
Motrin 800 mg PO given: Patient noted with complain of sore throat. Medicated patient with Motrin 800 mg PO as ordered. Will monitor for effectiveness.
--- NOTE | 2017-07-16 15:05 | NUR ---
Re-assessment: Motrin Per patient, PRN Motrin was effective in reducing patient's sore throat. PL 06/05.
[2017-07-16 16:00] VITALS: BP 94/58
[2017-07-16] MEDS: HYDROXYZINE PAMOATE 25 MG CAPSULE PO PRN (18:24)
--- NOTE | 2017-07-16 18:24 | NUR ---
Vistaril 25 mg PO given: Patient complained of anxiety. Unrelieved with non-pharmacological interventions provided but ineffective. Medicated patient with Vistaril 25 mg PO as ordered. Will monitor for effectiveness,.
[2017-07-16] MEDS: MIRALAX 17 GM POWD.PACK PO PRN (18:29)
--- NOTE | 2017-07-16 18:29 | NUR ---
Miralax 17GM PO given: Patient complained of constipation. No relief noted from MOM that was given last night. Medicated patient with Miralax 17GM PO as ordered. Oral fluids encouraged. Will monitor for effectiveness.
--- NOTE | 2017-07-16 19:03 | NUR ---
End of Shift Notes: Patient continues to be on 5-day Subutex and 5-day Valium taper as ordered. No adverse reactions noted. Patient is tolerating taper well. Withdrawal symptoms were closely monitored. Initial COWS 10/CIWA 10, patient presented with anxiety/agitation, chills, hot flashes, stomach cramps and myalgia. Last COWS 5/ CIWA 9. Per patient, Valium has been effective in reducing her withdrawal symptoms. Medicated patient with Motrin 800 mg PO at 1405, Vistaril at 1824 and Miralax at 1829 as ordered. Education provided. Patient was unable to participate in group due to complains of fatigue. Tends to ask for more meds expressing dysphoria. Patient reports that she was restless during the night. All needs met and attended. Will continue to monitor closely.
--- NOTE | 2017-07-16 19:12 | NUR ---
Start of shift note Received report from day shift nurse. Pt is a 32 yo female, A+Ox4, presenting to [facility] for Benzo/Opiate withdrawal. Pt noted with anxiety, agitation, restlessness, and irritability. Pt has HX of IBS, Anxiety, Depression, and Complex regional pain syndrome which will be monitored during shift. Respirations even and unlabored. Will continue to monitor. Addendum: 07/17/17 at 0344 by DINA ERIC LVN Pt has completed 5 day Valium and 5 day Subutex tapers, tolerated well, and is due for discharge tomorrow.
[2017-07-16 20:40] VITALS: BP 112/66
[2017-07-16] MEDS: diphenhydrAMINE 50 MG CAPSULE PO PRN (21:16)
--- NOTE | 2017-07-16 21:16 | NUR ---
PRN Benadryl Pt c/o inability to sleep and requested for PRN Benadryl. Medication given and tolerated well. Will reassess within 1 HR. Will continue to monitor.
[2017-07-16] MEDS: TRAZODONE 100 MG TABLET PO SCH (21:17)
--- NOTE | 2017-07-16 22:15 | NUR ---
PRN Benadryl Reassessment Medication effective. Pt is resting well in bed. No s/s of ASE noted at this time. Respirations even and unlabored. Will continue to monitor.
[2017-07-17 00:24] VITALS: BP 124/79
[2017-07-17 04:17] VITALS: BP 128/86
[2017-07-17] MEDS: PANTOPRAZOLE SODIUM 40 MG TABLET.DR PO SCH (06:44)
--- NOTE | 2017-07-17 06:54 | NUR ---
End of shift note Pt was continuously noted with anxiety, restlessness, and agitation during shift. Pt remained in room for majority of shift except to go smoke on smoking patio and to get food from kitchen. Pt was given PRN Benadryl @2115. Pt has completed 5 day Valium and 5 day Subutex tapers, tolerated well, and is due for discharge today. Pt slept for a total of 8 HRS. Last COWS: 6 and Last CIWA: 6 @0400. Respirations even and unlabored. Will endorse to day shift nurse.
--- NOTE | 2017-07-17 07:15 | NUR ---
START OF SHIFT PATIENT IS A 32 YR OLD FEMALE ADMITTED TO [facility] ON 07/10/17 FOR WITHDRAWAL FROM OPIATES AND BENZOS, PATIENT HAS COMPLETED HER SUBUTEX/VALIUM TAPERS AND IS TO BE DISCHARGED TODAY 07/17/17. PATIENT WAS NOTED TO HAVE AN ORAL REACTION TO SUBUTEX WHICH CAUSED IRRITATION IN HER ORAL CAVITY. PRN MEDS REQUIRED ON PM SHIFT : BENADRYL. LAST COWS 6 AND CIWA 6 . PATIENT IS ASLEEP IN BED AT THIS TIME, BREATHING EVEN AND UNLABORED. CONTINUE TO FOLLOW MD PLAN OF CARE.
[2017-07-17 08:00] VITALS: BP 109/70
[2017-07-17] MEDS: BOOST PLUS 237 ML LIQUID (RICH CHOCOLATE) PO SCH (08:00)
[2017-07-17] MEDS: MAGNESIUM HYDROXIDE 30 ML LIQUID UDC PO PRN (08:39)
[2017-07-17] MEDS: MIRALAX 17 GM POWD.PACK PO PRN (08:39)
[2017-07-17] MEDS: LORATADINE 10 MG TABLET PO SCH (08:40)
[2017-07-17] MEDS: CLONIDINE HCL 0.1 MG TABLET PO SCH (08:40)
[2017-07-17] MEDS: GABAPENTIN 300 MG CAPSULE PO SCH (08:40)
[2017-07-17] MEDS: DICYCLOMINE HCL 20 MG TABLET PO SCH (08:40)
[2017-07-17] MEDS: FAMOTIDINE 20 MG TABLET PO SCH (08:40)
[2017-07-17] MEDS: predniSONE 20 MG TABLET PO SCH (08:40)
--- NOTE | 2017-07-17 08:40 | NUR ---
PRN MOM/MIRALAX GIVEN PER PT REPORTS OF ONGOING CONSTIPATION AND ABDOMINAL DISCOMFORT, WILL REASSESS
--- NOTE | 2017-07-17 09:40 | NUR ---
PRN REASSESS PATIENT STATES NO BM YET, WILL CONTINUE TO MONITOR
[2017-07-17 12:00] VITALS: BP 86/52
[2017-07-17] MEDS: HYDROXYZINE PAMOATE 25 MG CAPSULE PO PRN (12:09)
[2017-07-17] MEDS: IBUPROFEN 800 MG TABLET PO PRN (12:09)
[2017-07-17] MEDS: DOCUSATE SODIUM 250 MG CAPSULE PO PRN (12:09)
--- NOTE | 2017-07-17 12:15 | NUR ---
PRN MEDS PRN MOTRIN 800MG PO, TYLENOL 650 MG PO , VISTARIL 25MG PO, COLACE 250MG PO GIVEN PER PATIENT REQUEST FOR PAIN MANAGEMENT AND ANXIETY UPON BEING DISCHARGED TODAY. PATIENT IS IRRITABLE AT THIS TIME , CONTINUE TO FOLLOW MD PLAN.
--- NOTE | 2017-07-17 13:15 | NUR ---
PRN REASSESS MEDS RELATIVELY EFFECTIVE, PATIENT IS IRRITABLE THAT SHE HAS TO LEAVE AND WILL NOT ANSWER ME WHEN i ASK HER WHAT HER PAIN LEVEL IS .
--- NOTE | 2017-07-17 13:50 | NUR ---
DISCHARGE NOTE PATIENT WAS ADMITTED TO [facility] ON 07/10/17 FOR WITHDRAWAL FROM OPIATES AND BENZOS. ALL DC PAPERWORK SIGNED AND DATED, ALL PERSONAL ITEMS, PRESCRIPTIONS AND CLOTHING GIVEN TO PATIENT. VITAL SIGNS STABLE : BP 90/54, HR 68, RR 18 T 98.2. LAST COWS 6 CIWA 6 . PATIENT AMBULATED TO INTAKE OFFICE AND CALLED FOR TRANSPORT TO [facility] FOR FLIGHT HOME.
== END 2017-07-17 13:50 | disposition home or self-care (01) | DRG 895 ==
LOC: SRC 10:31
PROVIDERS: ADMIT Internal Medicine; ATTEND Internal Medicine
PROC: HZ2ZZZZ Detoxification Services for Substance Abuse Treatment (ICD-10-PCS; principal; 2017-07-10)
PROC: HZ41ZZZ Group Counseling for Substance Abuse Treatment, Behavioral (ICD-10-PCS; 2017-07-12)
PROC: HZ31ZZZ Individual Counseling for Substance Abuse Treatment, Behavioral (ICD-10-PCS; 2017-07-13)
DX: F13.239 Sedative, hypnotic or anxiolytic dependence with withdrawal, unspecified (principal); D69.6 Thrombocytopenia, unspecified; Z86.74 Personal history of sudden cardiac arrest; G90.50 Complex regional pain syndrome I, unspecified; F11.23 Opioid dependence with withdrawal; F17.210 Nicotine dependence, cigarettes, uncomplicated; F32.9 Major depressive disorder, single episode, unspecified; F41.0 Panic disorder [episodic paroxysmal anxiety]; F41.1 Generalized anxiety disorder; Z81.1 Family history of alcohol abuse and dependence; Z81.8 Family history of other mental and behavioral disorders; Z96.89 Presence of other specified functional implants; G47.00 Insomnia, unspecified; K58.1 Irritable bowel syndrome with constipation; G89.29 Other chronic pain; Z91.89 Other specified personal risk factors, not elsewhere classified; T78.3XXA Angioneurotic edema, initial encounter; T40.4X5A Adverse effect of other synthetic narcotics, initial encounter; Y92.230 Patient room in hospital as the place of occurrence of the external cause
CPT/HCPCS: 36415; 70030-TC; 80307; 80361; 82746; 83735; 84443; 84703; 85025; 86403; 86592; 86705; 86803; 87070; 87340; 87806; A4663; G0480; J1885; J2405; J7512; Q0162; Q0163